=== PATIENT | female | born 1975 | race Caucasian/White ===

== ENCOUNTER 2016-08-16 17:21 | Emergency (ER) | payer SELFPAY ==
[2016-08-16 17:28] VITALS: BMI 30.3
--- NOTE | 2016-08-16 18:25 | DIRPT ---
CLINICAL DATA: Four-day history of cough. EXAM: CHEST 2 VIEW COMPARISON: 04/08/2016. FINDINGS: The cardiac silhouette, mediastinal and hilar contours are within normal limits and stable. The lungs are clear. No pleural effusion. The bony thorax is intact. IMPRESSION: No acute cardiopulmonary findings. Electronically Signed By: Citlali Doshi M.D. On: 08/16/2016 18:22
[2016-08-16] MEDS ORDERED: DIAZEPAM 5 MG TAB PO ONE (18:37)
[2016-08-16] MEDS ORDERED: PREDNISONE 20 MG TAB PO ONE (18:37)
[2016-08-16] MEDS ORDERED: OXYCODONE HCL 5 MG TABLET PO ONE (18:37)
[2016-08-16 18:51] VITALS: BP 135/74; PULSE 92; TEMP 98.6
--- NOTE | 2016-08-16 19:00 | EDPRACDOC ---
- General Information Chief Complaint: Flu-Like Symptoms Stated Complaint: RT RIB AREA PAIN/COUGH Time Seen by Provider: 08/16/16 18:26 Information Source: Patient Mode of Arrival: Car Home Medications: Home Medications Diazepam [Valium] 5 mg PO TID #15 tablet 08/16/16 Oxycodone Immediate Release [Oxycodone Immediate Release (OxyIR)] 5 mg PO Q6H PRN #20 tab 08/16/16 Prednisone [Deltasone, Orasone] 20 mg PO BID #12 tab 08/16/16 Allergies/Adverse Reactions: Allergies Allergy/AdvReac Type Severity Reaction Status Date / Time morphine Allergy Hives* Verified 08/16/16 17:28 - History of Present Illness Onset: 2 WEEKS HPI: PT PRESENTS WITH RIGHT LOWER CHEST PAIN THAT SHE STATES BEGAN APPROX 2 WEEKS AGO. STATES THIS WORSENS WITH COUGH, BREATHING OR MOVEMENT. GETS BETTER WITH GOODY POWDER. DENIES SHORTNESS OF BREATH. STATES SHE HAS HAD A COUGH FOR THE PAST 4 WEEKS AND WAS PLACED ON A NEBULIZER YESTERDAY. STATES THE PAIN IS SHARP, STABBING PAIN AND DOES NOT RADIATE. Chest Wall Injury Location: Reports: Medial, Front Context: Reports: Other Tetanus Up To Date?: No Pain Quality: Reports: Sharp, Stabbing Pain Severity: Reports: Moderate Pain Worsens With: Reports: Coughing, Breathing, Movement Shortness of Breath: None Associated Signs and Symptoms: Reports: None ED Past Medical History - History Reviewed Yes Nurses notes reviewed and agree except as marked - Patient Medical History Psychological History: Denies: Depression Surgical History: Reports: Cholecystectomy, Hysterectomy - Social Medical History Smoking Status: Heavy tobacco smoker (5 or more cigarettes/day or daily pipe/ cigar) EDM Review of Systems - Review of Systems ROS Negative Except as Marked: Yes All systems reviewed and were negative except as marked - Physical Exam Constitutional: Alert Oriented to: Time, Person, Place Last recorded Vital Signs: Last Vital Signs Temp 98.6 F 08/16/16 18:50 Pulse 92 08/16/16 18:50 Resp 20 08/16/16 18:50 BP 135/74 08/16/16 18:50 Pulse Ox 98 08/16/16 18:50 Oxygen Pulse Oxygen Saturation 98 O2 Device Room Air Oxygen Flow Rate Fraction of Inspired Oxygen ( FIO2) - HEENT Head: Normal ( normocephalic) Eye Exam: Normal (PERRL, EOMI, Sclera white) Oropharynx: Normal (Pharynx:Moist without exudate,Gums-no swelling) Nose: No Symptoms Reported (septum midline) Neck: Normal (FROM, trachea at midline) - Respiratory/Cardiovascular Respiratory: Normal - CTA (BBS clear to auscultation without adventitious sounds ) Cardiovascular: Normal (RRR without murmur, gallop or rub) - GI Auscultation: Normal (NABS) Palpation: Normal (Soft,No rebound or guarding, non distended) Tenderness: Non tender Pavon's Sign: Negative Rectal Exam: Normal - Musculoskeletal Back: Normal (Non-Tender) Extremities: Normal (Normal tone, Pulses 2+ No cyanosis or edema, FROM) - Integumentary Skin: Normal, Warm, Dry Lymphatics: Normal (no adenopathy) - Neurologic Memory Impaired: Normal Motor Function: Normal (Normal tone, Pulses 2+ No cyanosis or edema, FROM) Cranial Nerve: Normal (CN II-X11 intact sensation, strength 5/5) Cerebellar: Normal Mood Description: Normal Perception: Normal ED Chest Wall Pain Exam - Chest Wall Pain Chest: Tender - Differential Diagnosis Other Decision Time to Discharge: 19:01 - Departure Disposition: Home Condition: Stable Final Diagnosis: Chest wall pain Instructions: Chest Wall Pain (ED) Education/Counseling Given To: Patient Education/Counseling Given Regarding: Diagnosis, Treatment, Prognosis, Follow Up Referrals: Samuel Villarreal MD [Staff Physician] - One Week Prescriptions: New Diazepam [Valium] 5 mg PO TID #15 tablet Oxycodone Immediate Release [Oxycodone Immediate Release (OxyIR)] 5 mg PO Q6H PRN #20 tab PRN Reason: Pain Prednisone [Deltasone, Orasone] 20 mg PO BID #12 tab Additional Instructions: ICE OR HEAT TO THE AFFECTED AREA ~ WHICHEVER FEELS BETTER. FOLLOW UP WITH PCP NEXT WEEK. RETURN TO THE ED FOR WORSENING SYMPTOMS OR CONCERNS
== END 2016-08-16 19:10 | disposition home or self-care (01) ==
LOC: ED 17:21 → EDMC 19:10
DX: R07.89 Other chest pain (principal)
CPT/HCPCS: 71020; 99283; J3490